=== PATIENT | female | born 1960 | race Caucasian/White ===

== ENCOUNTER 2017-02-07 09:12 | Outpatient (CLI) | payer OTHER ==
[2017-02-07 18:00] LABS: BASOPHILS % (AUTO) 0.9 %; EOSINOPHILS # (AUTO) 0.1 10^3/uL (0.0-0.7); EOSINOPHILS % (AUTO) 2.7 %; HCT - HEMATOCRIT 43.2 % (37.0-47.0); HGB - HEMOGLOBIN 14.2 g/dL (12.0-16.0); LYMPHOCYTES # (AUTO) 1.5 10^3/uL (1.5-3.5); LYMPHOCYTES % (AUTO) 30.8 %; MEAN CORPUSCULAR HEMOGLOBIN 30.8 pg (27.0-31.0); MEAN CORPUSCULAR HGB CONC 32.8 g/dL (32.0-36.0); MEAN CORPUSCULAR VOLUME 93.6 fL (81.0-99.0); MEAN PLATELET VOLUME 8.7 fL (7.9-10.8); MONOCYTES # (AUTO) 0.5 10^3/uL (0.0-1.0); MONOCYTES % (AUTO) 10.1 %; NEUTROPHILS # (AUTO) 2.8 10^3/uL (1.5-6.6); NEUTROPHILS % (AUTO) 55.5 %; NUCLEATED RED BLOOD CELLS AUTO 0.1 /100WBC; RED BLOOD COUNT 4.62 10^6/uL (4.20-5.40); RED CELL DISTRIBUTION WIDTH 12.6 % (12.0-15.0)
[2017-02-07 18:16] LABS: ALBUMIN/GLOBULIN RATIO 1.2 (1.0-2.2); BILIRUBIN,TOTAL 0.7 mg/dL (0.2-1.0); CREATININE 0.8 mg/dL (0.4-1.0); POTASSIUM 4.4 mmol/L (3.5-5.0); TOTAL PROTEIN 6.8 g/dL (6.7-8.2)
== END 2017-02-07 09:13 | disposition home or self-care (01) ==
LOC: LAB.F 09:12
PROVIDERS: ATTEND Physician Assistant Medical
DX: Z00.00 Encounter for general adult medical examination without abnormal findings (principal); E55.9 Vitamin D deficiency, unspecified; Z51.81 Encounter for therapeutic drug level monitoring; Z79.899 Other long term (current) drug therapy
CPT/HCPCS: 36415; 80053; 82652; 85025

== ENCOUNTER 2017-02-15 13:09 | Outpatient (CLI) | payer OTHER ==
--- NOTE | 2017-02-17 10:16 | Mammography Report ---
DIGITAL BILATERAL SCREENING MAMMOGRAM: 02/15/2017 COMPARISON STUDY: Mammogram 08/28/2015. INDICATION: Screening mammography. TECHNIQUE: Routine CC and MLO projections were obtained of the breasts. FINDINGS: Parenchymal tissue within both breasts is extremely dense, which lowers the sensitivity of mammography; however, there are no dominant masses, suspicious microcalcifications, or secondary sig ns of malignancy. In comparison to the previous studies, there are no significant changes. IMPRESSION: No mammographic evidence of malignancy. PLAN: Screening mammography is recommended annually. BIRADS category 1 - negative. STANDARD QUALIFYING STATEMENTS 1. This examination was reviewed with the aid of Computed-Aided Detection (CAD). 2. A negative or benign imaging report should not delay biopsy if clinically suspicious findings are present. Consider surgical consultation if warranted. More than 5% of cancers are not identified by i maging. 3. Dense breasts may obscure an underlying neoplasm. JOB #: [id number] EXT JOB #:[id number]
== END 2017-02-15 13:10 | disposition home or self-care (01) ==
LOC: DI 13:09
PROVIDERS: ATTEND Physician Assistant Medical
DX: Z12.31 Encounter for screening mammogram for malignant neoplasm of breast (principal)
CPT/HCPCS: 77067

== ENCOUNTER 2018-03-01 09:01 | Outpatient (CLI) | payer OTHER ==
[2018-03-01 17:42] LABS: BASOPHILS % (AUTO) 0.7 %; EOSINOPHILS # (AUTO) 0.1 10^3/uL (0.0-0.7); EOSINOPHILS % (AUTO) 1.8 %; HGB - HEMOGLOBIN 13.8 g/dL (12.0-16.0); LYMPHOCYTES # (AUTO) 1.5 10^3/uL (1.5-3.5); LYMPHOCYTES % (AUTO) 36.2 %; MEAN CORPUSCULAR HEMOGLOBIN 31.6 pg (27.0-31.0); MEAN CORPUSCULAR HGB CONC 33.7 g/dL (32.0-36.0); MEAN CORPUSCULAR VOLUME 93.7 fL (81.0-99.0); MEAN PLATELET VOLUME 8.7 fL (7.9-10.8); MONOCYTES # (AUTO) 0.4 10^3/uL (0.0-1.0); NEUTROPHILS % (AUTO) 50.3 %; PLT - PLATELET COUNT 214 10^3/uL (130-450); RED BLOOD COUNT 4.38 10^6/uL (4.20-5.40); RED CELL DISTRIBUTION WIDTH 13.1 % (12.0-15.0); WHITE BLOOD COUNT 4.1 x10^3/uL (4.8-10.8)
[2018-03-01 18:06] LABS: ALBUMIN 3.9 g/dL (3.2-5.5); ALBUMIN/GLOBULIN RATIO 1.3 (1.0-2.2); BILIRUBIN,TOTAL 0.7 mg/dL (0.2-1.0); CALCIUM 9.1 mg/dL (8.5-10.3); CREATININE 0.8 mg/dL (0.4-1.0); TOTAL PROTEIN 6.8 g/dL (6.7-8.2)
== END 2018-03-01 09:02 | disposition home or self-care (01) ==
LOC: LAB.F 09:01
PROVIDERS: ATTEND Physician Assistant Medical
DX: Z51.81 Encounter for therapeutic drug level monitoring (principal); Z79.899 Other long term (current) drug therapy
CPT/HCPCS: 36415; 80053; 85025

== ENCOUNTER 2018-09-20 11:04 | Outpatient (CLI) | payer OTHER ==
--- NOTE | 2018-09-20 16:16 | XRAY Report ---
Reason: HIP JOINT PAIN,LEFT Procedure Date: 09/20/2018 Accession Number: [id number] / [id number] Procedure: XR - Hip w/Pelvis 2-3V LT CPT Code: FULL RESULT: EXAM: LEFT HIP RADIOGRAPHY EXAM DATE: 09/20/2018 11:12 AM. CLINICAL HISTORY: HIP JOINT PAIN,LEFT. COMPARISON: None. TECHNIQUE: 2 views. FINDINGS: Bones: The bones appear intact without evidence of fracture. Joints: Joint alignment is normal. There is mild left hip sclerosis and minimal degenerative spurring. Soft Tissues: Pelvic phleboliths. No soft tissue swelling. IMPRESSION: Mildly general changes in the left hip, no acute abnormality. RADIA
== END 2018-09-20 11:05 | disposition home or self-care (01) ==
LOC: DI 11:04
PROVIDERS: ATTEND Physician Assistant Medical
DX: M16.12 Unilateral primary osteoarthritis, left hip (principal)

== ENCOUNTER 2019-03-29 09:54 | Outpatient (CLI) | payer OTHER ==
[2019-03-29 17:20] LABS: BASOPHILS # (AUTO) 0.1 10^3/uL (0.0-0.1); EOSINOPHILS # (AUTO) 0.1 10^3/uL (0.0-0.7); EOSINOPHILS % (AUTO) 2.4 %; LYMPHOCYTES # (AUTO) 1.3 10^3/uL (1.5-3.5); LYMPHOCYTES % (AUTO) 25.1 %; MEAN CORPUSCULAR HEMOGLOBIN 30.8 pg (27.0-31.0); MEAN CORPUSCULAR HGB CONC 32.1 g/dL (32.0-36.0); MEAN PLATELET VOLUME 10.4 fL (7.9-10.8); MONOCYTES # (AUTO) 0.6 10^3/uL (0.0-1.0); MONOCYTES % (AUTO) 11.8 %; NEUTROPHILS % (AUTO) 59.5 %; PLT - PLATELET COUNT 250 10^3/uL (130-450); RED BLOOD COUNT 4.22 10^6/uL (4.20-5.40); RED CELL DISTRIBUTION WIDTH 12.8 % (12.0-15.0); WHITE BLOOD COUNT 5.1 x10^3/uL (4.8-10.8)
[2019-03-29 18:11] LABS: ALBUMIN 3.7 g/dL (3.2-5.5); ALBUMIN/GLOBULIN RATIO 1.1 (1.0-2.2); BILIRUBIN,TOTAL 0.8 mg/dL (0.2-1.0); CREATININE 0.8 mg/dL (0.4-1.0); TOTAL PROTEIN 7.1 g/dL (6.7-8.2)
== END 2019-03-29 09:55 | disposition home or self-care (01) ==
LOC: LAB.S 09:54
PROVIDERS: ATTEND Physician Assistant Medical
DX: Z51.81 Encounter for therapeutic drug level monitoring (principal); Z79.899 Other long term (current) drug therapy
CPT/HCPCS: 36415; 80053; 85025

== ENCOUNTER 2020-04-29 08:52 | Outpatient (CLI) | payer OTHER ==
[2020-04-29 15:20] LABS: BASOPHILS % (AUTO) 0.7 %; EOSINOPHILS # (AUTO) 0.1 10^3/uL (0.0-0.7); EOSINOPHILS % (AUTO) 2.2 %; HGB - HEMOGLOBIN 13.3 g/dL (12.0-16.0); LYMPHOCYTES # (AUTO) 2.2 10^3/uL (1.5-3.5); LYMPHOCYTES % (AUTO) 40.2 %; MEAN CORPUSCULAR HEMOGLOBIN 30.6 pg (27.0-31.0); MEAN CORPUSCULAR HGB CONC 32.8 g/dL (32.0-36.0); MEAN CORPUSCULAR VOLUME 93.3 fL (81.0-99.0); MEAN PLATELET VOLUME 10.1 fL (7.9-10.8); MONOCYTES # (AUTO) 0.5 10^3/uL (0.0-1.0); MONOCYTES % (AUTO) 9.2 %; NEUTROPHILS # (AUTO) 2.6 10^3/uL (1.5-6.6); NEUTROPHILS % (AUTO) 47.3 %; PLT - PLATELET COUNT 249 10^3/uL (130-450); RED BLOOD COUNT 4.35 10^6/uL (4.20-5.40); RED CELL DISTRIBUTION WIDTH 12.5 % (12.0-15.0); WHITE BLOOD COUNT 5.4 x10^3/uL (4.8-10.8)
[2020-04-29 16:03] LABS: ALBUMIN 3.7 g/dL (3.2-5.5); ALBUMIN/GLOBULIN RATIO 1.2 (1.0-2.2); ALKALINE PHOSPHATASE 74 IU/L (42-121); ALT ALANINE AMINOTRANSFERASE 23 IU/L (10-60); AST ASPARTATE AMINOTRANSFERASE 24 IU/L (10-42); BILIRUBIN,TOTAL 0.7 mg/dL (0.2-1.0); BUN - BLOOD UREA NITROGEN 18 mg/dL (6-20); CALCIUM 8.8 mg/dL (8.5-10.3); CARBON DIOXIDE - CO2 25 mmol/L (21-32); CHLORIDE 107 mmol/L (101-111); CHOL/HDL RATIO 4.2 (<4.4); CHOLESTEROL 220 mg/dL; CREATININE 0.7 mg/dL (0.4-1.0); GLUCOSE 99 mg/dL (70-100); HDL CHOLESTEROL 52 mg/dL; LDL CHOLESTEROL,CALCULATED 149 mg/dL; LDL/HDL RATIO 2.9 (<4.4); SODIUM 139 mmol/L (135-145); TOTAL PROTEIN 6.9 g/dL (6.7-8.2); VLDL CHOLESTEROL 19 mg/dL
== END 2020-04-29 08:53 | disposition home or self-care (01) ==
LOC: LAB.S 08:52
PROVIDERS: ATTEND Registered Nurse
DX: G47.9 Sleep disorder, unspecified (principal); E55.9 Vitamin D deficiency, unspecified; F32.9 Major depressive disorder, single episode, unspecified; F41.9 Anxiety disorder, unspecified
CPT/HCPCS: 36415; 80053; 80061; 83721; 84443; 85025

== ENCOUNTER 2020-06-09 13:06 | Outpatient (CLI) | payer OTHER ==
--- NOTE | 2020-06-10 12:46 | Mammography Report ---
BILATERAL DIGITAL SCREENING MAMMOGRAM 3D/2D: 06/09/2020 CLINICAL: Routine screening. Comparison is made to exams dated: 02/15/2017 mammogram, 08/28/2015 mammogram - [facility], 03/10/2015 mammogram, and 12/10/2013 mammogram - [facility]. The tissue of both breasts is predominantly fatty. No significant masses, calcifications, or other findings are seen in either breast. There has been no significant interval change. IMPRESSION: NEGATIVE There is no mammographic evidence of malignancy. A 1 year screening mammogram is recommended. This exam was interpreted at Station ID: [id number]. NOTE: For mammograms, a report in lay terms will be sent to the patient. Approximately 15% of breast malignancies will not be visualized mammographically. In the management of a palpable breast mass, a negative mammogram must not discourage biopsy of a clinically suspicious lesion. Electronically Signed By: Rodrigo Carpio M.D., jr/robert:06/09/2020 14:22:10 ACR BI-RADS Category 1: Negative 3341F PARENCHYMAL PATTERN: (F) - The breast(s) demonstrate(s) diffuse fatty replacement. BI-RADS CATEGORY: (1) - 1 RECOMMENDATION: (ANNUAL) - Recommend routine annual screening mammography. [id number] 1 year screening LATERALITY: (B)
== END 2020-06-09 13:07 | disposition home or self-care (01) ==
LOC: DI 13:06
PROVIDERS: ATTEND Registered Nurse
DX: Z12.31 Encounter for screening mammogram for malignant neoplasm of breast (principal)

== ENCOUNTER 2020-10-18 09:50 | Outpatient (CLI) | payer OTHER ==
--- NOTE | 2020-10-18 10:31 | XRAY Report ---
PROCEDURE: Lumbar Spine 2 View INDICATIONS: LEFT SCIATICA TECHNIQUE: 3 views of the lumbar spine were acquired. COMPARISON: None. FINDINGS: Bones: 5 [id number] vertebrae are present. There is normal bony alignment. No vertebral body compression fractures. No suspicious bony lesions. Multilevel disc height loss and facet arthropath y. Suspect canal stenosis. Soft tissues: Overlying bowel gas pattern is normal. No suspicious soft tissue calcifications. IMPRESSION: Multilevel disc height loss and facet arthropathy. Suspect canal stenosis. No evidence a cute bony abnormality of the lumbar spine. Comment: Consider lumbar spine MRI on a nonemergent basis. Reviewed by: Yohannes Khoury MD on 10/18/2020 9:30 AM TRA Approved by: Yohannes Khoury MD on 10/18/2020 9:30 AM TRA Station ID: [id number]
--- NOTE | 2020-10-18 10:32 | XRAY Report ---
PROCEDURE: Hip w/Pelvis 1V LT INDICATIONS: LEFT SCIATICA TECHNIQUE: AP pelvis, one view COMPARISON: None. FINDINGS: Bones: No fractures or dislocations. Pelvic ring appears intact. No suspicious bony lesions. Mild left hip degenerative change. Soft tissues: The visualized bowel gas pattern is normal. No suspicious soft tissue calcifications. IMPRESSION: No evidence acute bony abnormality of the pelvis. Mild left hip degenerative change. Reviewed by: Yohannes Khoury MD on 10/18/2020 9:31 AM TRA Approved by: Yohannes Khoury MD on 10/18/2020 9:31 AM TRA Station ID: [id number]
== END 2020-10-18 23:59 | disposition home or self-care (01) ==
LOC: DI.S 09:50
PROVIDERS: ATTEND Emergency Medicine
DX: M54.32 Sciatica, left side (principal); S76.012A Strain of muscle, fascia and tendon of left hip, initial encounter; M16.12 Unilateral primary osteoarthritis, left hip

== ENCOUNTER 2020-12-03 13:37 | Outpatient (CLI) | payer OTHER ==
--- NOTE | 2020-12-03 17:05 | MRI Report ---
PROCEDURE: Hip LT W/O INDICATIONS: LEFT HIP DJD, LEFT SCIATICA TECHNIQUE: Noncontrast coronal T1 spin echo and STIR through the bony pelvis. Coronal and axial T2 fast spin ec ho with fat saturation, sagittal T1 spin echo, and oblique axial T2 fast spin echo with fat saturatio n through the hip. COMPARISON: None. FINDINGS: Bones: No fracture or focal osseous destruction. Moderate to severe left hip joint degenerative and. No avascular necrosis of the femoral heads. There is moderate joint effusion Lower lumbar spondylosis and facet arthropathy. Sacroiliac joints: Normal. Tendons: Gluteus minimus: Mild insertional tendinopathy. Gluteus medius: Mild insertional tendinopathy. Iliopsoas tendon: Intact. No adjacent bursitis. Hamstring tendon origin. Intact. Labrum and cartilage: Acetabular labrum: Ill-defined labral tear, which could be chronic/degenerative. There is macerated a ppearance Cartilage: Diffuse partial thickness loss of the femoral and acetabular cartilage. There is subchond ral marrow edema. Alpha angle of the femur: Within normal limits at less than 55 degrees. Soft tissues: Visualized muscles: Normal bulk and internal signal. Proximal sciatic neurovascular bundle: Normal. Pelvic free fluid: None. Bladder: Normal. Genitourinary structures and bowel loops: Normal where visualized. IMPRESSION: Moderate to severe left hip joint degeneration. Ill-defined macerated appearing anterosuperior labral tear which is probably chronic/degenerative. Moderate joint effusion Mild insertional hip abductor tendinopathy. Reviewed by: Isma Patterson MD on 12/03/2020 5:04 PM PDT Approved by: Isma Patterson MD on 12/03/2020 5:04 PM PDT Station ID: [id number]
== END 2020-12-03 13:38 | disposition home or self-care (01) ==
LOC: DI 13:37
PROVIDERS: ATTEND Registered Nurse
DX: M16.12 Unilateral primary osteoarthritis, left hip (principal); S73.192A Other sprain of left hip, initial encounter; M25.452 Effusion, left hip; M67.952 Unspecified disorder of synovium and tendon, left thigh

== ENCOUNTER 2022-07-06 10:22 | Day surgery (SDC) | payer OTHER ==
[2022-07-06] MEDS ORDERED: LACTATED RINGERS 1,000 ML IV ONE ×2 (10:36→12:15)
[2022-07-06] MEDS ORDERED: PROPOFOL 500 MG/50 ML 500 MG/50 ML VIAL ONE (11:38)
--- NOTE | 2022-07-06 11:44 | ANESTHESIA ---
Pre-Anesthesia VS, & Labs - Diagnosis screening exam - Procedure colonoscopy Vital Signs: Temp Pulse Resp BP Pulse Ox O2 Flow Rate 36 C L 57 L 16 127/73 99 07/06/22 10:36 07/06/22 10:36 07/06/22 10:36 07/06/22 10:36 07/06/22 10:36 Height: 5 ft 3 in Weight (kg): 77.8 kg Body Mass Index: 30.4 BMI Classification: Obese - NPO >8 hours - Is Patient ?: No Home Medications and Allergies Home Medications: Ambulatory Orders Latanoprost/Pf [Latanoprost 0.005% Eye Drop] 1 drops OP QPM 07/05/22 Meloxicam [Mobic] 15 mg PO DAILY 07/05/22 Timolol 0.5% Ophth Drops [Timoptic 0.5% Ophth Drops] 1 drops OPTH QPM 07/05/22 buPROPion [Wellbutrin Xl] 150 mg PO DAILY 07/05/22 Latanoprost/Pf [Latanoprost 0.005% Eye Drop] 1 drops OP QPM 07/05/22 Meloxicam [Mobic] 15 mg PO DAILY 07/05/22 Timolol 0.5% Ophth Drops [Timoptic 0.5% Ophth Drops] 1 drops OPTH QPM 07/05/22 buPROPion [Wellbutrin Xl] 150 mg PO DAILY 07/05/22 Allergies/Adverse Reactions: Allergies Allergy/AdvReac Type Severity Reaction Status Date / Time ciprofloxacin [From Cipro] AdvReac Unknown Verified 07/05/22 13:03 Anes History & Medical History - Anesthetic History Anesthesia Complications: reports: No previous complications - Medical History Cardiovascular: reports: None Pulmonary: reports: None Gastrointestinal: reports: None Urinary: reports: None Neuro: reports: None Musculoskeletal: reports: Osteoarthritis Endocrine/Autoimmune: reports: None Blood Disorders: reports: None Skin: reports: None Smoking Status: Never smoker Psychosocial: reports: Depression History of Cancer?: No - Surgical History Gynecologic: reports: Tubal ligation Orthopedic: reports: Carpal Tunnel surgery, Spine surgery Exam General: Alert, Oriented x3, Cooperative, No acute distress Dental: WNL Mouth Openin Fingerbreadth Neck Mobility: Normal Mallampati classification: II Thyromental Distance: 4-6 cm Mental/Cognitive Status: Alert/Oriented X3, Normal for patient Plan Anesthesia Type: General, Total IV Consent for Procedure(s) Verified and Reviewed: Yes Code Status: Attempt Resuscitation ASA classification: 2-Mild systemic disease Is this case an emergency?: No
[2022-07-06 12:36] VITALS: BP 122/65
--- NOTE | 2022-07-06 12:45 | ANESTHESIA POST OP EVALUATION ---
Anesthesia Post Eval - Post Anesthesia Eval Vitals: Last Vital Signs Temp 36.6 C 07/06/22 12:35 Pulse 65 07/06/22 12:35 Resp 16 07/06/22 12:35 BP 122/65 07/06/22 12:35 Pulse Ox 99 07/06/22 12:35 O2 Flow Rate CV Function Including HR & BP: Stable Pain Control: Satisfactory Nausea & Vomiting: Negative Mental Status: Baseline Respiratory Status: Airway Patent Hydration Status: Satisfactory Anesthesia Complications: None
== END 2022-07-06 10:23 | disposition home or self-care (01) ==
LOC: SDS 10:22
PROVIDERS: ATTEND Surgery
DX: Z12.11 Encounter for screening for malignant neoplasm of colon (principal); K57.30 Diverticulosis of large intestine without perforation or abscess without bleeding; E66.9 Obesity, unspecified; Z68.30 Body mass index [BMI] 30.0-30.9, adult
CPT/HCPCS: 45378; J7120

== ENCOUNTER 2022-09-28 07:27 | Outpatient (CLI) | payer OTHER ==
[2022-09-28 14:40] LABS: BASOPHILS % (AUTO) 0.8 %; EOSINOPHILS # (AUTO) 0.1 10^3/uL (0.0-0.7); EOSINOPHILS % (AUTO) 2.2 %; HCT - HEMATOCRIT 40.1 % (37.0-47.0); LYMPHOCYTES # (AUTO) 1.9 10^3/uL (1.5-3.5); LYMPHOCYTES % (AUTO) 37.9 %; MEAN CORPUSCULAR HGB CONC 32.4 g/dL (32.0-36.0); MEAN CORPUSCULAR VOLUME 95.5 fL (81.0-99.0); MEAN PLATELET VOLUME 10.3 fL (7.9-10.8); MONOCYTES # (AUTO) 0.5 10^3/uL (0.0-1.0); MONOCYTES % (AUTO) 10.5 %; NEUTROPHILS # (AUTO) 2.4 10^3/uL (1.5-6.6); NEUTROPHILS % (AUTO) 48.4 %; PLT - PLATELET COUNT 239 10^3/uL (130-450); RED CELL DISTRIBUTION WIDTH 13.5 % (12.0-15.0)
[2022-09-28 15:04] LABS: ALBUMIN 3.6 g/dL (3.2-5.5); ALBUMIN/GLOBULIN RATIO 1.1 (1.0-2.2); ALKALINE PHOSPHATASE 78 IU/L (42-121); ALT ALANINE AMINOTRANSFERASE 23 IU/L (10-60); AST ASPARTATE AMINOTRANSFERASE 22 IU/L (10-42); BILIRUBIN,TOTAL 0.5 mg/dL (0.2-1.0); BUN - BLOOD UREA NITROGEN 20 mg/dL (6-20); CALCIUM 9.1 mg/dL (8.5-10.3); CARBON DIOXIDE - CO2 27 mmol/L (21-32); CHLORIDE 108 mmol/L (101-111); CHOL/HDL RATIO 3.3 (<4.4); CHOLESTEROL 191 mg/dL; CREATININE 0.7 mg/dL (0.4-1.0); GFR - MDRD 84 (>89); GLUCOSE 103 mg/dL (70-100); HDL CHOLESTEROL 58 mg/dL; LDL CHOLESTEROL,CALCULATED 117 mg/dL; POTASSIUM 4.5 mmol/L (3.5-5.0); SODIUM 140 mmol/L (135-145); TOTAL PROTEIN 6.8 g/dL (6.7-8.2); TRIGLYCERIDES 80 mg/dL; VLDL CHOLESTEROL 16 mg/dL
[2022-09-28 15:10] LABS: THYROID STIMULATING HORMONE 1.71 uIU/mL (0.34-5.60)
== END 2022-09-28 07:28 | disposition home or self-care (01) ==
LOC: LAB.S 07:27
PROVIDERS: ATTEND Registered Nurse
DX: Z79.899 Other long term (current) drug therapy (principal); Z13.220 Encounter for screening for lipoid disorders; Z13.29 Encounter for screening for other suspected endocrine disorder
CPT/HCPCS: 36415; 80053; 80061; 83721; 84443; 85025

== ENCOUNTER 2022-09-29 07:52 | Outpatient (CLI) | payer OTHER ==
--- NOTE | 2022-09-29 10:07 | Mammography Report ---
BILATERAL DIGITAL SCREENING MAMMOGRAM 3D/2D WITH EXAGGERATED CC: 09/29/2022 CLINICAL: Routine screening. Comparison is made to exams dated: 06/09/2020 mammogram, 02/15/2017 mammogram, and 08/28/2015 mammogram - [facility]. There are scattered areas of fibroglandular density in both breasts (category b / 25%-50% glandular t issue). No significant masses, calcifications, or other findings are seen in either breast. There has been no significant interval change. IMPRESSION: NEGATIVE There is no mammographic evidence of malignancy. A 1 year screening mammogram is recommended. Based on the Tyrer Cuzick model (a risk assessment model) the patients lifetime risk is 5.9% and her 10 year risk is 2.7%. According to the ACR, ACS, and NCCN guidelines, an annual breast MRI exam jazlyn g with mammogram is recommended if the patients lifetime risk is 20% or greater. This exam was interpreted at Station ID: [id number]. NOTE: For mammograms, a report in lay terms will be sent to the patient. Approximately 15% of breast malignancies will not be visualized mammographically. In the management of a palpable breast mass, a negative mammogram must not discourage biopsy of a clinically suspicious lesion. Electronically Signed By: Ramses pizarro/robert:09/29/2022 09:03:38 letter sent: No_Letter ACR BI-RADS Category 1: Negative 3341F PARENCHYMAL PATTERN: (A) - The breast(s) demonstrate(s) scattered fibroglandular densities. BI-RADS CATEGORY: (1) - 1 Mammogram [id number] 1 year screening LATERALITY: (B)
== END 2022-09-29 07:53 | disposition home or self-care (01) ==
LOC: DI.S 07:52
PROVIDERS: ATTEND Registered Nurse
DX: Z12.31 Encounter for screening mammogram for malignant neoplasm of breast (principal)

== ENCOUNTER 2023-10-21 09:57 | Outpatient (CLI) | payer MEDICARE, OTHER ==
--- NOTE | 2023-10-21 16:19 | MRI Report ---
PROCEDURE: Lumbar Spine WO INDICATIONS: LUMBAR RADICULOPATHY TECHNIQUE: Noncontrast sagittal T1 spin echo and T2 fast echo, sagittal STIR, axial T1 and T2 fast spin echo thr ough the lumbar spine. In cases with scoliosis, additional coronal T2 fast spin echo may be performe d. COMPARISON: X-ray lumbar spine 10/18/2020 FINDINGS: Image quality: Excellent. Alignment and Curvature: There is multilevel trace retrolisthesis throughout the lumbar spine. Bone Marrow: Marrow is of normal overall signal. No acute vertebral body compression fractures. Spinal Cord: Conus medullaris terminates at the L1 level. Visualized cord demonstrates normal signa l and size. Paraspinous Soft Tissues: No paravertebral masses. Multilevel mild to moderate disc desiccation most prominent at L4-5. T12-L1: Minimal disc bulge without spinal stenosis or foraminal narrowing. L1-L2: Mild disc bulge with minimal spinal stenosis. Mild right and minimal to mild left foraminal narrowing with facet and ligamentum flavum hypertrophy. L2-L3: Mild disc bulge with superimposed left posterior paracentral protrusion. Mild to moderate s opal stenosis. Mild to moderate bilateral foraminal narrowing with facet and ligamentum flavum hyper trophy. L3-L4: Mild disc bulge with mild to moderate spinal stenosis. Mild left foraminal narrowing with fa cet and ligamentum flavum hypertrophy. L4-L5: Mild disc bulge with moderate spinal stenosis. Mild to moderate bilateral foraminal narrowin g with facet and ligamentum flavum hypertrophy. L5-S1: Mild disc bulge with mild spinal stenosis. Mild left foraminal narrowing. There is moderate narrowing to the subarticular recess on the right with overall facet and ligamentum flavum hypertroph y. IMPRESSION: Multilevel disc bulges. Multilevel spinal stenosis most prominent at L4-5 secondary to disc bulge with contributing effect of facet/ligamentum flavum arthropathy. Multilevel foraminal narrowing overall mild to moderate secondary to facet/ligamentum flavum arthropa thy. Reviewed by: Jenifer Pabon MD on 10/21/2023 4:18 PM PDT Approved by: Jenifer Pabon MD on 10/21/2023 4:18 PM PDT Station ID: [id number]
== END 2023-10-21 09:58 | disposition home or self-care (01) ==
LOC: DI 09:57
PROVIDERS: ATTEND Orthopaedic Surgery
DX: M51.16 Intervertebral disc disorders with radiculopathy, lumbar region (principal); M48.061 Spinal stenosis, lumbar region without neurogenic claudication; M51.17 Intervertebral disc disorders with radiculopathy, lumbosacral region; M48.07 Spinal stenosis, lumbosacral region; M47.26 Other spondylosis with radiculopathy, lumbar region; M47.27 Other spondylosis with radiculopathy, lumbosacral region

== ENCOUNTER 2023-10-24 16:31 | Outpatient (CLI) | payer MEDICARE, OTHER ==
--- NOTE | 2023-10-24 19:39 | XRAY Report ---
PROCEDURE: Lumbar Spine 23V INDICATIONS: LUMBAR RADICULOPATHY TECHNIQUE: 3 views of the lumbar spine were acquired. COMPARISON: Lumbar spine MRI dated 10/21/2023 FINDINGS: Surgical change: None. Bones: 5 [id number] vertebrae are present. There is normal bony alignment. No vertebral body co mpression fractures. No suspicious bony lesions. Lower lumbar facet arthropathy. Multilevel degenera tive disc space loss, relatively mild. Soft tissues: Overlying bowel gas pattern is normal. No suspicious soft tissue calcifications. IMPRESSION: No acute bony abnormality. Lower lumbar facet arthropathy. Reviewed by: Yohannes Khoury MD on 10/24/2023 7:38 PM PDT Approved by: Yohannes Khoury MD on 10/24/2023 7:38 PM PDT Station ID: [id number]
== END 2023-10-24 16:32 | disposition home or self-care (01) ==
LOC: DI 16:31
PROVIDERS: ATTEND Orthopaedic Surgery
DX: M47.26 Other spondylosis with radiculopathy, lumbar region (principal)